=== PATIENT | male | born 1940 | race African-American/Black ===

== ENCOUNTER → 2020-09-13 | Day surgery (SDC) | payer MEDICARE, OTHER ==
--- NOTE | 2020-09-13 17:46 | PDOC.EEG ---
Neurology EEG Report - Report Report: This EEG was performed using 24 channel No [employer] video EEG machine with 24 disc bo ctrodes. This was a routine inpatient video EEG recording. Digital analysis of the EEG was done for spike and seizure detection which revealed no abnormalities. Background: There is a nonsustained posterior background rhythm .of 8.5-9 Hz. Minimal reactivity with eye opening and closure. Hyperventilation: Not performed. Photic Stimulation: No significant response. Sleep: No stage change is observed. EEG Diagnosis: Rare theta activity seen during the recording. . Clinical Interpretation: This EEG is consistent with mild generalized nonspecific cerebral dysfunction.
== END ==
LOC: EEG 16:13
PROVIDERS: ATTEND Neurological Surgery
DX: R56.9 Unspecified convulsions (principal)
CPT/HCPCS: 95816